=== PATIENT | female | born 1935 | race Two or more races ===

== ENCOUNTER 2019-05-17 15:46 | Inpatient (IN) | payer MEDICARE ==
[~2019-05-17] VITALS: Ht 160 cm; Wt 63.5 kg
--- NOTE | 2019-05-17 15:56 | NUR ---
1059 code neuro paged / neurology dr perez paged [phone] dr hauser spoke with dr perez
[2019-05-17 16:12] LABS: BASOPHILS % (AUTO) 1 % (0-1); EOSINOPHILS # (AUTO) 0.29 x10^3/uL (0-0.4); EOSINOPHILS % (AUTO) 3 % (1-7); LYMPHOCYTES # (AUTO) 2.81 x10^3/uL (1-3.4); LYMPHOCYTES % (AUTO) 28 % (22-44); MD NO; MEAN CORPUSCULAR HEMOGLOBIN 31.2 pg (27.0-34.8); MEAN CORPUSCULAR HGB CONC 32.7 g/dL (32.4-35.8); MEAN CORPUSCULAR VOLUME 95.3 fL (80-100); MEAN PLATELET VOLUME 9.3 fL (7.4-10.4); MONOCYTES % (AUTO) 9 % (2-9); NEUTROPHILS # (AUTO) 5.91 x10^3/uL (1.8-6.8); NEUTROPHILS % (AUTO) 59 % (42-75); PLATELET COUNT 297 x10^3/uL (130-400); RED BLOOD COUNT 4.62 x10^6/uL (3.82-5.3); RED CELL DISTRIBUTION WIDTH 13.5 % (9.6-15.2)
[2019-05-17 16:23] LABS: INTERNATIONAL NORMALIZED RATIO 0.91 (0.93-1.1); PROTHROMBIN TIME 9.6 Seconds (9.6-11.5)
--- NOTE | 2019-05-17 16:24 | NUR ---
PT HAS BEEN TO AND NOW RETURNED FROM CT WAITING ON NEURO
--- NOTE | 2019-05-17 16:26 | NUR ---
NEURO TO THE BS AT THIS TIME FOR ASSESMENT
[2019-05-17] MEDS ORDERED: OMNIPAQUE 350 MG/ML, 100ML BOTTLE ONE (16:30)
[2019-05-17] MEDS ORDERED: BENA20TA54 PO (16:43)
[2019-05-17] MEDS ORDERED: LOVA40TA2 PO (16:45)
[2019-05-17] MEDS ORDERED: AMLO10TA8 PO (16:45)
[2019-05-17] MEDS ORDERED: ATEN100T PO (16:45)
[2019-05-17] MEDS ORDERED: ALTEPLASE 6 MG in SYRINGE 1 EA IVPush ONE (17:00)
[2019-05-17] MEDS ORDERED: PLEASE ENTER ALLERGIES MC SCH (17:00)
[2019-05-17] MEDS ORDERED: ALTEPLASE 51 MG in VIAL 1 EACH IV ONE (17:00)
[2019-05-17] MEDS: PLEASE ENTER HEIGHT AND WEIGHT MC SCH ×2 (17:15→21:51)
[2019-05-17] MEDS ORDERED: ONDANSETRON ODT 4 MG PO PRN (17:30)
[2019-05-17] MEDS ORDERED: ONDANSETRON 2MG/ML, 2ML IVPush PRN (17:30)
[2019-05-17] MEDS ORDERED: ACETAMINOPHEN 325 MG TABLET PO PRN (17:30)
[2019-05-17 17:46] LABS: FREE T4 (FREE THYROXINE) 1.25 ng/dL (0.76-1.46)
[2019-05-17 17:54] LABS: HEMOGLOBIN A1C 5.5 % (4.2-6.3)
[2019-05-17] MEDS ORDERED: D5%-0.45NACL+KCL 20MEQ 1,000 ML IV SCH (17:58)
--- NOTE | 2019-05-17 18:12 | NUR ---
REPORT CALLED TO THE FLOOR TPA COMPLETED AND FLUSHED FULL DOSE NO BLEEDING NOTED PT REMAINED A04 W SLIGHT R FACIAL DROP GOOD EQUAL STRENGTH UPPER AND LOWER EXTREMITIES TRANSPORTED TO CCU WO CHANGE
[2019-05-17] MEDS ORDERED: ALTEPLASE 1 MG/ML ONE (18:21)
[2019-05-17 19:46] VITALS: BP 141/53
[2019-05-17 20:06] VITALS: BP 122/57
[2019-05-17] MEDS: LOVASTATIN 40 MG TABLET PO SCH (21:51)
[2019-05-18 04:31] LABS: ALBUMIN 3.4 g/dL (3.4-5.0); ANION GAP 4 mmol/L (5-15); BASOPHILS # (AUTO) 0.01 x10^3/uL (0-0.1); BASOPHILS % (AUTO) 0 % (0-1); CALCIUM 8.9 mg/dL (8.5-10.1); CHLORIDE 114 mmol/L (98-107); EOSINOPHILS # (AUTO) 0.25 x10^3/uL (0-0.4); EOSINOPHILS % (AUTO) 3 % (1-7); LYMPHOCYTES # (AUTO) 1.25 x10^3/uL (1-3.4); LYMPHOCYTES % (AUTO) 14 % (22-44); MD NO; MEAN CORPUSCULAR HEMOGLOBIN 30.9 pg (27.0-34.8); MEAN CORPUSCULAR HGB CONC 32.9 g/dL (32.4-35.8); MEAN CORPUSCULAR VOLUME 94.1 fL (80-100); MEAN PLATELET VOLUME 9.5 fL (7.4-10.4); MONOCYTES # (AUTO) 0.55 x10^3/uL (0.2-0.8); MONOCYTES % (AUTO) 6 % (2-9); NEUTROPHILS % (AUTO) 76 % (42-75); PLATELET COUNT 241 x10^3/uL (130-400); RED BLOOD COUNT 4.49 x10^6/uL (3.82-5.3); RED CELL DISTRIBUTION WIDTH 13.8 % (9.6-15.2)
[2019-05-18 04:34] LABS: ALANINE AMINOTRANSFERASE 16 U/L (12-78); ALKALINE PHOSPHATASE 56 U/L (45-117); BILIRUBIN,TOTAL 0.6 mg/dL (0.2-1.0); CHOL/HDL RATIO 2.4; CHOLESTEROL, TOTAL 134 mg/dL (140-239); HDL CHOL % 43 % (28-40); HDL CHOLESTEROL (DIRECT) 57 mg/dL (40-60); TRIGLYCERIDES 115 mg/dL (50-200); VLDL CHOLESTEROL 23 mg/dL (0-25)
[2019-05-18 04:35] LABS: LDL CHOLESTEROL,CALCULATED 54 mg/dL (54-169); LDL/HDL RATIO 0.9 (0.5-3.0)
[2019-05-18 19:28] VITALS: BP 158/64
[2019-05-18] MEDS: LOVASTATIN 40 MG TABLET PO SCH (20:23)
[2019-05-19 01:48] VITALS: BP 147/74
[2019-05-19 07:51] VITALS: BP 155/67
[2019-05-19] MEDS ORDERED: ATENOLOL 100 MG TABLET PO SCH (09:30)
[2019-05-19] MEDS ORDERED: hydrALAzine 20 MG/ML, 1ML IV PRN (09:30)
[2019-05-19] MEDS ORDERED: BENAZEPRIL 20 MG TABLET PO SCH (09:30)
[2019-05-19] MEDS ORDERED: ASPI81TA45 PO (13:22)
[2019-05-19] MEDS ORDERED: CLOP75TA PO (13:22)
[2019-05-19 14:30] VITALS: BP 128/75
[2019-05-19] MEDS ORDERED: FLU VAC QS 19-20(4YR UP)CEL/PF 0.5 ML IM-VACC ONE (15:30)
[2019-05-20] MEDS ORDERED: ASPIRIN 81 MG TABLET EC PO SCH (06:00)
[2019-05-20] MEDS ORDERED: CLOPIDOGREL 75 MG TABLET PO SCH (09:00)
== END 2019-05-19 15:45 | disposition home or self-care (01) | DRG 62 ==
LOC: ED 16:39 → EDIP 16:40 → ED 16:50 → CCU 17:57 → 4EST 05-18 18:37 → DCLOUNGE 05-19 15:34
PROVIDERS: ADMIT Hospitalist; ATTEND Internal Medicine
PROC: 3E03317 Introduction of Other Thrombolytic into Peripheral Vein, Percutaneous Approach (ICD-10-PCS; principal; 2019-05-17)
PROC: B3151ZZ Fluoroscopy of Bilateral Common Carotid Arteries using Low Osmolar Contrast (ICD-10-PCS; 2019-05-17)
PROC: B31G1ZZ Fluoroscopy of Bilateral Vertebral Arteries using Low Osmolar Contrast (ICD-10-PCS; 2019-05-17)
PROC: B3181ZZ Fluoroscopy of Bilateral Internal Carotid Arteries using Low Osmolar Contrast (ICD-10-PCS; 2019-05-17)
DX: I63.512 Cerebral infarction due to unspecified occlusion or stenosis of left middle cerebral artery (principal); E87.2 Acidosis; G81.91 Hemiplegia, unspecified affecting right dominant side; I63.89 Other cerebral infarction; I67.1 Cerebral aneurysm, nonruptured; E78.5 Hyperlipidemia, unspecified; I07.1 Rheumatic tricuspid insufficiency; I12.9 Hypertensive chronic kidney disease with stage 1 through stage 4 chronic kidney disease, or unspecified chronic kidney disease; I65.23 Occlusion and stenosis of bilateral carotid arteries; N18.9 Chronic kidney disease, unspecified; R29.810 Facial weakness; Z86.73 Personal history of transient ischemic attack (TIA), and cerebral infarction without residual deficits; Z90.710 Acquired absence of both cervix and uterus; R47.81 Slurred speech
CPT/HCPCS: 36415; 70450; 70496; 70498; 70551; 80047; 80053; 80061; 82962; 83036; 83735; 84100; 84439; 84443; 85025; 85610; 85730; 87081; 90674; 93005; 93306; 93880; 96365; 96368; G0378; J2997; Q9967; 92523-GN; J3480